=== PATIENT | female | born 1965 | race Caucasian/White ===

== ENCOUNTER → 2018-10-17 05:45 | Day surgery (SDC) | payer SELFPAY ==
[~2018-10-17 05:45] MED LIST: Bacitracin IV* 50,000 UNITS INJ ONE; Buffered Lidocaine 1% SYRIN* 1 ML/SYRINGE INTRADERM ONE; Dexamethasone IV* 4 MG/ML 1 ML (4 MG) ONE; DiMENhydriNATE IV* 50 MG/ML VIAL IV PUSH PRN; DiMENhydriNATE IV* 50 MG/ML VIAL ONE; Gentamicin ADULT (*) 40 MG/ML VIAL (2 ML VIAL = 80 MG) ONE; Glycopyrrolate IV* 0.2 MG/ML 1 ML VIAL ONE; Lactated Ringers 1000 ML Bag* 1,000 ML IV SCH; Lidocaine 2% PF * 5 ML VIAL ONE; Methylene Blue 0.5 %* 50 MG/10 ML AMP IV ONE; Midazolam* 1 MG/ML 2 ML VIAL (2 MG) ONE; Naloxone* 0.4 MG/ML 1 ML VIAL IV PRN; Neostigmine Methylsulfate* 1 MG/ML 10 ML VIAL (1 mg/ml) ONE; Ondansetron INJ* 2 MG/ML VIAL ONE; Povidone Iodine 5% OPTH* 30 ML BTL ONE; Propofol* 10 MG/ML 20 ML BTL ONE; Rocuronium* 10 MG/ML VIAL ONE; Scopolamine 1.5 mg* PATCH ONE; Sodium Citrate/Citric Acid* 15 ML UDC ONE; Sodium Citrate/Citric Acid* 15 ML UDC PO ONE; ceFAZolin 2 GM PREMIX in ORs 2 GM/50 ML BAG IVPB ONE; ceFAZolin VIAL(*) VIAL ONE; fentaNYL* 50 MCG/ML 2 ML VIAL (100 MCG VIAL) ONE; oxyCODONE/Acetamin 5/325 MG* TAB ONE
[2018-10-17] MEDS: fentaNYL* 50 MCG/ML 2 ML VIAL (100 MCG VIAL) IV PRN ×5 (12:16→13:01)
[2018-10-17 14:45] VITALS: BP 106/76
--- NOTE | 2018-10-18 14:46 | OP ---
DATE OF OPERATION: 10/17/18 - [facility] DATE OF : 67 SURGEON: Dash Bernardo MD. HEALTH INFORMATION SYSTEMS TECHNICIAN: TRICIA Shelton. SECOND PLANT CYTOLOGIST: Dr. Carolina Hill. ANESTHESIOLOGIST: Marquez Canales DO. ANESTHESIA: General. PRE-OP DIAGNOSIS: Cosmetic surgery. POST-OP DIAGNOSIS: Cosmetic surgery. OPERATIVE PROCEDURE: Revision bilateral augmentation mastopexy with Concrete 350- 3251 BC smooth, round silicone gel implants and acellular dermal matrix wings. ESTIMATED BLOOD LOSS: Less than 100 cc. SPECIMENS: Right breast tissue 101 g, left breast tissue 129 g. DRAINS: Two 7-mm flat Syed-Zabala drains. COMPLICATIONS: None. INDICATIONS FOR OPERATION: The patient is a 53-year-old female status who is post bilateral augmentation mastopexy in 2001 with 330 cc of saline implants placed in submammary pockets using an inverted "T" scar pattern with Dr. Euceda. Subsequently, she states that she had an unexpected , which resulted in recurrent ptosis and "bottoming out" of her breast. She underwent revision of bilateral augmentation mastopexy in 2006 with saline implants and AlloDerm slings, again with Dr. Euceda. She again developed recurrent ptosis and "bottoming out" of her breast as well as complaints of pain which she associated with the size of her breast and she wished to have smaller implants. She again underwent revisional surgery with Dr. Euceda; this time, placed in 235 cc of saline implants. She presented to my office in 2011 with complaints of recurrent sagging and bottoming out. She underwent revisional bilateral mastopexy with open capsulectomies and implant removals on 10/26/12. She again developed recurrent bottoming out and wide inframammary scars as well as very indistinct inframammary folds bilaterally. She underwent revision mastopexy with scar revisions and reconstruction at the inframammary folds on 12/20/13. She presents now complaining her breasts are too small and lack fullness. Preoperative examination demonstrates the breasts are well healed. There is recurrent moderate bottoming out with irregularity and indistinct inframammary folds bilaterally, worse on the left. There is lack of central and upper pole fullness, periareolar wrinkling and irregularity of shape and contour. Suprasternal notch and nipple distance is 20.5 cm bilaterally. Nipple to inframammary fold distance is 9.8 cm on the right side and 9.7 cm on the left. Nipple areolar complex diameter is 3.6 cm bilaterally. Base width is 15 cm bilaterally. Internipple distance is 16 cm and the intramammary distance is 1.1 cm. Pinch test in the upper pole of the right breast is 3.3 cm and on the left it is 3.0 cm. PROCEDURE: The patient was brought to the operating room and placed on the operating table in the supine position. General anesthesia was induced by Dr. Canales. The bilateral breasts anterior and lateral chest areas were prepped with ChloraPrep solution and draped sterilely. Attention was turned first towards the right breast. The wide, irregular inframammary scar was excised in a transverse oriented fusiform curvilinear elliptical fashion. Areas of ptotic breast tissue were noted extending underneath and below the scar. These areas of ptotic breast tissue were excised removing a total of 101 g of tissue from the right breast. A dual- planed submuscular pocket was then created, first dissecting the breast tissue off of the pectoralis major muscle above the level of the nipple. The inferior lateral border of the pectoralis muscle was then identified and a submuscular pocket created using sharp dissection with electrocautery and scissors. Meticulous hemostasis was maintained through-out the procedure with fine point electrocautery. Once an adequate-sized pocket had been created for the planned implant, attention was turned towards placement of acellular DermMatrix swings using BellaDerm 8 x 16 cm. The Krystyna-Derm was soaked in saline and then placed along the desired inframammary fold and then the inferior edge sutured to the planned position of the inframammary folds suturing it to the chest wall and rib periosteum using interrupted sutures of 2-0 Vicryl. The pocket was then irrigated with 5% Betadine and saline, also containing Ancef , gentamicin, and bacitracin and then rinsed to clear with the saline. The pocket was then irrigated with further antibiotic solution without Betadine. Hemostasis was noted to be good. Attention was turned towards the left breast and mirror image type procedure performed on the left side excising the scar and excising ptotic breast tissue below the level of the scar removing a total of 129 g of tissue from the left breast. The dual-planed pocket dissection was then performed. Hemostasis was obtained with electrocautery. The BellaDerm was soaked in saline and then the inferior edge sutured to the chest wall and rib, periosteum along the planned inframammary folds location using interrupted sutures of 2-0 Vicryl. Pocket was irrigated with the Betadine and antibiotic solution, rinsed to clear with saline and rinsed with further antibiotic solution. Hemostasis was noted to be good. The Concrete style 350-3251 BC smooth, round silicone gel implants were selected and rinsed externally in the antibiotic solution without Betadine and then inserted into their respective pockets and the superior edge of the BellaDerm sutured to the inferior lateral edge of the pectoralis major muscle adjusting the tension to achieve the desired support and position of the implants. Concrete 350 cc silicone gel breast implant sizers were used during the case to aid in pocket dissection and location of the desired inframammary folds. Flat, 7-mm, Syed-Zabala drains were placed between the breast tissue and the BellaDerm and brought out through separate stab incisions in the lateral chest area and secured on both sides with 3-0 Prolene sutures. To reinforce inframammary folds at their desired location, the inferior edge of incisions were undermined in the inframammary area with electrocautery dissection and the skin flaps advanced superiorly and sutured to the inframammary fold location using buried interrupted sutures of 2-0 Vicryl. Inframammary wounds were then closed with buried subcutaneous and deep dermal sutures of 2-0 and 3-0 Vicryl and then the skin closed with a running subcuticular 3-0 Monocryl. VAC Prevena dressing was applied and good seal was verified. The patient tolerated the procedure well. There were no complications. All counts were reported as correct at the end of the procedure. The patient taken to the recovery area in stable postoperative condition. [id number]/[facility] #: [id number] [facility]ENTER[facility]
== END | disposition home or self-care (01) ==
LOC: OR 05:45
PROVIDERS: ATTEND Plastic Surgery
DX: Z41.1 Encounter for cosmetic surgery (principal); Z87.891 Personal history of nicotine dependence
CPT/HCPCS: 88305; A9270-GY; A9272-GY; C1789; J0690; J1100; J1240; J1580; J2250; J2405; J2704; J2710; J3010

== ENCOUNTER 2019-06-15 13:43 | Emergency (ER) | payer OTHER ==
--- OUTSIDE RECORDS SUMMARY | 2019-06-15 13:56 | XMS REPORT | Continuity of Care Document ---
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 Provider Date Closed fracture of phalanx of foot Gerard Menendez MD Onset: 05/03/2019 Social History Type Date Description Comments Sex Unknown ETOH Use Drinks 1 Alcoholic Beverage Per Week Tobacco Use Start: Unknown End: Patient is a former smoker Unknown Smoking Status Reviewed: 05/03/19 Patient is a former smoker Exercise Type/Frequency Exercises regularly Allergies, Adverse Reactions, Alerts Description No Known Drug Allergies Medications Description No Active Medications Immunizations Description No Information Available Vital Signs Date Vital Result Comment 05/03/2019 1:10pm Height 70 inches 5'10" Weight 136.00 lb Heart Rate 77 /min BP Systolic Sitting 106 mmHg BP Diastolic Sitting 70 mmHg Respiratory Rate 14 /min Pain Level 8 O2 % BldC Oximetry 98 % BMI (Body Mass Index) 19.5 kg/m2 11/19/2014 1:29pm Height 70 inches 5'10" Weight 130.00 lb Pain Level 9 BMI (Body Mass Index) 18.7 kg/m2 Results Description No Information Available Procedures Description No Information Available Medical Devices Description No Information Available Encounters Description No Information Available Assessments Date Code Description Provider 05/03/2019 S92.512A Displaced fracture of proximal phalanx of left Gerard Menendez MD lesser toe(s), initial encounter for closed fracture Plan of Treatment Future Appointment(s):06/01/2019 1:45 pm - Gerard Menendez MD at [facility]05/03/2019 - Gerard Menendez, MDS92.512A Displaced fracture of proximal phalanx of left lesser toe(s), initial encounter for closed fractureNew Xrays:Toe Left 5TH, Ordered: 05/03/19Follow up:Follow Up: 4 weeks Functional Status Description No Information Available Mental Status Description No Information Available Referrals Description No Information Available
--- OUTSIDE RECORDS SUMMARY | 2019-06-15 13:56 | XMS REPORT | Continuity of Care Document ---
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 Provider Date Closed fracture of phalanx of foot Gerard Menendez MD Onset: 05/03/2019 Social History Type Date Description Comments Sex Unknown ETOH Use Drinks 1 Alcoholic Beverage Per Week Tobacco Use Start: Unknown End: Patient is a former smoker Unknown Smoking Status Reviewed: 06/04/19 Patient is a former smoker Exercise Type/Frequency Exercises regularly Allergies, Adverse Reactions, Alerts Description No Known Drug Allergies Medications Active Medications SIG Qnty Indications Ordering Provider Date Womens 50+ Multi Unknown Vitamin & Mineral Formula Tablets Ibuprofen 2 tabs by mouth Unknown 200mg Capsules every 6 hours as needed Immunizations Description No Information Available Vital Signs Date Vital Result Comment 06/04/2019 10:16am Height 70 inches 5'10" Weight 136.00 lb Heart Rate 65 /min BP Systolic 114 mmHg BP Diastolic 72 mmHg Body Temperature 97.4 F Pain Level 3 BMI (Body Mass Index) 19.5 kg/m2 05/03/2019 1:10pm Height 70 inches 5'10" Weight 136.00 lb Heart Rate 77 /min BP Systolic Sitting 106 mmHg BP Diastolic Sitting 70 mmHg Respiratory Rate 14 /min Pain Level 8 O2 % BldC Oximetry 98 % BMI (Body Mass Index) 19.5 kg/m2 Results Description No Information Available Procedures Description No Information Available Medical Devices Description No Information Available Encounters Type Date Location Provider Dx Diagnosis Office Visit 05/03/2019 [facility] Gerard Menendez, S92.512A Disp fx of 1:15p at [place] proximal phalanx of left lesser toe(s), init Assessments Date Code Description Provider 06/04/2019 S92.512A Displaced fracture of proximal phalanx of left Gerard Menendez MD lesser toe(s), initial encounter for closed fracture 05/03/2019 S92.512A Displaced fracture of proximal phalanx of left Gerard Menendez MD lesser toe(s), initial encounter for closed fracture Plan of Treatment Future Appointment(s):07/10/2019 10:45 am - Gerard Menendez MD at [facility] at [id number]/04/2019 - Gerard Menendez MDS92.512A Displaced fracture of proximal phalanx of left lesser toe(s), initial encounter for closed fractureFollow up:Follow Up: 4 weeks Functional Status Description No Information Available Mental Status Description No Information Available Referrals Description No Information Available
--- OUTSIDE RECORDS SUMMARY | 2019-06-15 13:56 | XMS REPORT | Continuity of Care Document ---
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 No Information Available Social History Type Date Description Comments Sex Unknown Tobacco Use Start: Unknown End: Unknown Former Cigarette Smoker ETOH Use Uses Alcohol Daily Tobacco Use Start: Unknown End: Patient is a former smoker Recreational Drug Use Denies Drug Use Allergies, Adverse Reactions, Alerts Description No Known Drug Allergies Medications Description No Active Medications Immunizations Description No Information Available Vital Signs Date Vital Result Comment 05/02/2019 8:07am BP Systolic Sitting Left Arm 98 mmHg BP Diastolic Sitting Left Arm 66 mmHg Body Temperature 97.0 F Heart Rate 69 /min Height 69 inches 5'9" Weight 138.00 lb BMI (Body Mass Index) 20.4 kg/m2 BSA (Body Surface Area) 1.76 m2 [place] body weight in kilograms 66 kg O2 % BldC Oximetry 99 % Results Description No Information Available Procedures Description No Information Available Medical Devices Description No Information Available Encounters Description No Information Available Assessments Date Code Description Provider 05/02/2019 S92.515A Nondisplaced fracture of proximal phalanx of Alejandra Quesada MD left lesser toe(s), initial encounter for closed fracture Plan of Treatment 05/02/2019 - Alejandra Quesada MDS92.515A Nondisplaced fracture of proximal phalanx of left lesser toe(s), initial encounter for closed fractureReferral: Gerard Menendez MD, Surgery,Orthopedic Functional Status Description No Information Available Mental Status Description No Information Available Referrals Refer to Reason for Referral Status Appt Date Gerard Menendez MD Displaced LT 5th metatarsal fx Stacey, Patient Notified 05/03/2019 Please stop back at our office prior to 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 Thank you. Denise left voicemail 05/02/19 [facility] [address], [address] [place] [id number] [phone]
[2019-06-15 14:10] VITALS: BP 93/77
--- NOTE | 2019-06-15 14:26 | ED ---
Throat Pain/Nasal Congestion - HPI Summary HPI Summary: 54yr female with the complaint of bilateral ear pain, sinus pressure, post nasal drip, intermittent fever, and cough for over two weeks. She is taking mucinex without relief. No other complaints. The patient feels her pain in the frontal and maxillary sinuses has gotten worse. - History of Current Complaint Chief Complaint: UCGeneralIllness Time Seen by Provider: 06/15/19 14:16 - Allergies/Home Medications Allergies/Adverse Reactions: Allergies Allergy/AdvReac Type Severity Reaction Status Date / Time acetaminophen [From [place]] Allergy Nausea And Verified 06/15/19 14:09 Vomiting, SEVERE ITCHING hydrocodone [From [place]] Allergy Nausea And Verified 06/15/19 14:09 Vomiting, SEVERE ITCHING PMH/Surg Hx/FS Hx/Imm Hx Endocrine/Hematology History: Reports: Hx Anemia - HX OF Denies: Hx Diabetes, Hx Thyroid Disease Cardiovascular History: Denies: Hx Hypertension, Hx Pacemaker/ICD Comment Only: Other Cardiovascular Problems/Disorders - PATIENT STATES SHE HAVE HX OF LOW BLOOD PRESSURE Respiratory History: Denies: Hx Asthma, Hx Chronic Obstructive Pulmonary Disease (COPD) GI History: Denies: Hx Ulcer Sensory History: Reports: Hx Contacts or Glasses - CONTACTS Denies: Hx Hearing Aid Opthamlomology History: Reports: Hx Contacts or Glasses - CONTACTS Psychiatric History: Denies: Hx Panic Disorder - Cancer History Hx Chemotherapy: No Hx Radiation Therapy: No - Surgical History Surgery Procedure, Year, and Place: [facility] [place] [facility] [place]. [facility]. BTL [address] [place] [address] Hx Anesthesia Reactions: No Infectious Disease History: No Infectious Disease History: Denies: Hx Hepatitis, Hx Human Immunodeficiency Virus (HIV), Traveled Outside the [place] in Last 30 Days - Social History Alcohol Use: Weekly Alcohol Amount: UP TO 6-8 BEER PER WEEKEND Substance Use Type: Reports: None Smoking Status (MU): Former Smoker Amount Used/How Often: 1 PACK PER WEEK Length of Time of Smoking/Using Tobacco: 20 YEARS Have You Smoked in the Last Year: No Review of Systems Constitutional: Negative Positive: Sore Throat, Ear Ache, Nasal Discharge Positive: Cough All Other Systems Reviewed And Are Negative: Yes Physical Exam Triage Information Reviewed: Yes Vital Signs On Initial Exam: Initial Vitals Temp Pulse Resp BP Pulse Ox 98.1 F 78 18 93/77 99 06/15/19 14:03 11/01/19 14:03 06/15/19 14:03 06/15/19 14:03 06/15/19 14:03 Vital Signs Reviewed: Yes Appearance: Positive: Well-Appearing, No Pain Distress Skin: Positive: Warm, Skin Color Reflects Adequate Perfusion Head/Face: Positive: Normal Head/Face Inspection Eyes: Positive: EOMI ENT: Positive: Pharyngeal erythema, Nasal congestion, Nasal drainage, TM red - retracted bilateral, Sinus tenderness Neck: Positive: Nontender Respiratory/Lung Sounds: Positive: Clear to Auscultation, Breath Sounds Present Cardiovascular: Positive: RRR. Negative: Murmur Abdomen Description: Negative: Distended Musculoskeletal: Positive: Strength/ROM Intact Neurological: Positive: Sensory/Motor Intact, Alert, Oriented to Person Place, Time, CN Intact II-III, Normal Gait, Speech Normal Psychiatric: Positive: Normal Diagnostics - Vital Signs Vital Signs Temp Pulse Resp BP Pulse Ox 06/15/19 14:03 98.1 F 78 18 93/77 99 - Laboratory Lab Statement: Any lab studies that have been ordered have been reviewed, and results considered in the medical decision making process. EENT Course/Dx - Course Course Of Treatment: 54 yr old with sinus pain, and retracted ear drums. Sinusitis. Rx with Augmentin. - Diagnoses Provider Diagnoses: Sinusitis Discharge ED - Sign-Out/Discharge Documenting (check all that apply): Patient Departure All imaging exams completed and their final reports reviewed: No Studies - Discharge Plan Condition: Good Disposition: HOME Prescriptions: Amoxicillin/Clavulanate TAB* [Augmentin TAB 875*] 875 mg PO BID #20 tab Patient Education Materials: Sinusitis (ED) Referrals: Dottie Hamilton MD [Primary Care Provider] - 2 Days - Billing Disposition and Condition Condition: GOOD Disposition: Home
== END 2019-06-15 14:28 | disposition home or self-care (01) ==
LOC: UCCORT 13:43
DX: J32.9 Chronic sinusitis, unspecified (principal); H92.03 Otalgia, bilateral; Z87.891 Personal history of nicotine dependence; J02.9 Acute pharyngitis, unspecified; Z88.5 Allergy status to narcotic agent; R05 Cough
CPT/HCPCS: 99212; G0463